=== PATIENT | female | born 1975 ===

== ENCOUNTER 2024-02-28 18:36 | Emergency (ER) | payer BC, SELFPAY ==
[2024-02-28] MEDS ORDERED: Ketorolac Tromethamine 30 MG (1 mL) VIAL ONE (19:29)
== END 2024-02-28 21:46 | disposition home or self-care (01) ==
LOC: CSHERS 18:36
DX: I80.8 Phlebitis and thrombophlebitis of other sites (principal); F17.290 Nicotine dependence, other tobacco product, uncomplicated
CPT/HCPCS: 96372; J1885